=== PATIENT | female | born 1980 | race Caucasian/White ===

== ENCOUNTER 2021-11-16 13:07 | Outpatient (CLI) | payer BC, SELFPAY | END 2021-11-16 13:08 | disposition home or self-care (01) | LOC: ANHAUDIO 13:08 | PROVIDERS: PCP Family Medicine; Visit Provider Otolaryngology | DX: H90.12 Conductive hearing loss, unilateral, left ear, with unrestricted hearing on the contralateral side (principal) | CPT/HCPCS: 92557; 92567 ==